=== PATIENT | male | born 1970 | race Caucasian/White ===

== ENCOUNTER 2016-11-09 01:22 | Emergency (ER) | payer SELFPAY ==
--- NOTE | ~2016-11-09 | ER ---
PATIENT'S NAME: LYNN CARNEY [facility] AGE: 45 Y [address] ROOM: [place] [address] LOCATION: [facility] ADMIT DATE: 11/09/2016 ER/Outpatient Report DISCHARGE DATE: 11/09/2016 FAMILY PHYSICIAN: PHYSICIAN, NO ATTENDING PHYSICIAN: Khushbu Rai Time of Arrival: 0122 hours. Time of Evaluation: 0216 hours. IDENTIFICATION: A 45-year-old male. CHIEF COMPLAINT: Abdominal pain. HISTORY OF PRESENT ILLNESS: The patient is a 45-year-old male with a history of Crohn disease, who presents with abdominal pain, nausea, and vomiting, started at 9:00 p.m. tonight. Diffuse abdominal pain. He has diarrhea, which he states is usual for him. No blood in his stools. No dark, tarry, or black stools. No change in his stools. No fever or chills. PAST MEDICAL HISTORY: ALLERGIES: NO KNOWN DRUG ALLERGIES. CURRENT MEDICATIONS: 1. Potassium. 2. Pentasa. MEDICAL PROBLEMS: Crohn disease; history of bowel obstruction, status post resection in 2008; and medical noncompliance. PRIOR SURGERIES: Colon resection and previous hernia repair. SOCIAL HISTORY: The patient is , lives here in [place]. He is disabled. Tobacco use 1 pack per day. Alcohol use, denies. Drug use, denies. FAMILY HISTORY: Father with NM and stroke. Mother with diabetes per old records. PATIENT'S NAME: LYNN CARNEY [facility] AGE: 45 Y [address] ROOM: [place] [address] LOCATION: [facility] ADMIT DATE: 11/09/2016 ER/Outpatient Report DISCHARGE DATE: 11/09/2016 FAMILY PHYSICIAN: PHYSICIAN, NO ATTENDING PHYSICIAN: Khushbu Rai REVIEW OF SYSTEMS: All systems reviewed and negative other than what is noted in the HPI. PHYSICAL EXAMINATION: VITAL SIGNS: Height 5 feet 8 inches, weight 55.9 kg. Blood pressure 113/70, pulse 100, respirations 16, temperature 97.9, and saturations 96% on room air. GENERAL: A 45-year-old male with 9/10 pain, in no acute distress. HEENT: Head: Normocephalic, atraumatic. Eyes: Pupils equal and reactive to light and accommodation. Extraocular movements intact. Nose: Mucosa pink. No lesions. Mouth: No lesions. Pharynx benign. NECK: Supple. No lymphadenopathy. No nuchal rigidity. LUNGS: Clear to auscultation. HEART: Regular rate and rhythm. No murmur, rub, or gallop. ABDOMEN: Hypoactive bowel sounds. Soft, nondistended. Diffusely tender to palpation. No rebound or guarding. SKIN: [place], warm, and dry. No lesions or rashes noted. NEURO: The patient is alert and oriented x4. Cranial nerves 2 through 12 grossly intact. Motor strength 5/5 throughout. Sensation is intact to light touch. EMERGENCY DEPARTMENT COURSE: An IV was initiated. Fentanyl and Zofran were ordered for pain and nausea, and lab work was obtained. Hemoglobin 15.8, hematocrit 45.7, platelets 372, white count 19.2 with 88% neutrophils. Sodium 140, potassium low at 2.6, chloride 112, CO2 of 19, BUN 13, creatinine 1.2, blood sugar 107. Liver enzymes normal. Amylase 134, lipase 275. CT with IV contrast was recommended. The patient refused CT scan. The patient refused any further workup and refused hospitalization. IMPRESSION AND PLAN: 1. Abdominal pain, history of Crohn's, and an elevated white count of 19,000. The patient refuses CT scan to rule out abscess. 2. Hypokalemia. Recommended for the patient to have potassium replacement. He agreed to oral potassium 40 mEq, but refused any further cares. He does understand the risks of cardiac arrhythmia, , infection, and abscess, and he signs out against medical advice. KHUSHBU RAI MD CAR/modl PATIENT'S NAME: LYNN CARNEY [facility] AGE: 45 Y [address] ROOM: [place], [place] [address] LOCATION: [facility] ADMIT DATE: 11/09/2016 ER/Outpatient Report DISCHARGE DATE: 11/09/2016 FAMILY PHYSICIAN: PHYSICIAN, NO ATTENDING PHYSICIAN: Khushbu Rai /[id number] d: 11/09/16 0503 t: 11/10/16 0142, OUTPATIENT REPORT
[~2016-11-09 01:22] MED LIST: B-12250 MCG PO; CALCIUM600 MG PO; DELTASONE10 MG PO; KLOR-CON M2020 MEQ PO; PENTASA500 MG PO; PREPARATION H O57 GM TOP; VITAMIN D400 UNIT PO
[2016-11-09 02:38] LABS: BASOPHIL # 0.1 K/uL (0.0-0.2); BASOPHIL % 0.3 %; EOSINOPHIL # 0.1 K/uL (0.0-0.5); EOSINOPHIL % 0.6 %; HEMATOCRIT 45.7 % (37.0-53.0); HEMOGLOBIN 15.8 g/dL (12.0-17.0); IMMATURE GRANULOCYTE # 0.1 K/uL (0.0-0.3); IMMATURE GRANULOCYTE % 0.4 %; LYMPHOCYTE # 1.3 K/uL (0.8-4.0); LYMPHOCYTE % 6.7 %; MCH 33.2 pg (27.0-34.0); MCHC 34.6 gm/dL (32.0-36.5); MONOCYTE # 0.7 K/uL (0.0-1.0); MONOCYTE % 3.6 %; MPV 8.6 fl (9.4-12.4); NEUTROPHIL # (ANC) 16.9 K/uL (1.4-9.0); NEUTROPHIL % 88.4 %; NRBC % 0 /100WBC (0-0.00); PLATELET COUNT 372 K/uL (150-450); RBC 4.76 M/uL (4.00-6.00); RDW-CV 13.3 % (11.9-14.6)
[2016-11-09 02:39] LABS: WBC 19.2 K/uL (4.0-11.0)
[2016-11-09 02:55] LABS: ALBUMIN 2.7 gm/dL (3.5-5.0); ALK PHOS 130 IU/L (33-138); ALT 15 IU/L (12-78); ANION GAP 11.6 (10.0-19.0); AST 23 IU/L (10-40); BLOOD UREA NITROGEN 13 mg/dL (6-24); CALCIUM 8.3 mg/dL (8.5-10.5); CHLORIDE 112 mMol/L (96-110); CO2 19 mMol/L (22-32); CREATININE 1.2 mg/dL (0.6-1.3); ESTIMATED GFR (MDRD EQUATION) > 60; SODIUM 140 mMol/L (135-145); TOTAL BILIRUBIN 0.7 mg/dL (0.0-1.5); TOTAL PROTEIN 6.5 g/dL (6.0-8.4)
[2016-11-09 02:56] LABS: POTASSIUM 2.6 mMol/L (3.7-5.1)
== END 2016-11-09 01:31 | disposition left against medical advice (07) ==
LOC: GMED 01:22
PROVIDERS: Family Medicine
DX: R10.9 Unspecified abdominal pain (principal); E87.6 Hypokalemia; F17.210 Nicotine dependence, cigarettes, uncomplicated; Z90.49 Acquired absence of other specified parts of digestive tract; Z87.19 Personal history of other diseases of the digestive system
CPT/HCPCS: J2405; J3010

== ENCOUNTER 2017-02-15 10:51 | Emergency (ER) | payer SELFPAY ==
--- NOTE | ~2017-02-15 | ER ---
PATIENT'S NAME: LYNN CARNEY [facility] AGE: 46 Y [address] ROOM: [place] [address] LOCATION: [facility] ADMIT DATE: 02/15/2017 ER/Outpatient Report DISCHARGE DATE: 02/15/2017 FAMILY PHYSICIAN: Physician, Unknown ATTENDING PHYSICIAN: Quinton Rader TIME OF PATIENT ARRIVAL: 1051 hours. TIME OF PATIENT EVALUATION: 1105 hours. CHIEF COMPLAINT: Hemorrhoids. HISTORY OF PRESENT ILLNESS: This is a 46-year-old male, who presents to the ER, who states he has been dealing with pain from his hemorrhoids for the last 3 days. The patient has a history of hemorrhoids, and they do have some cream for it, but it has not been helping him. He denies any fever or chills. He states that they do bleed after a bowel movement, but he has not had super-hard stools. He has no chest pain. No cough. No shortness of breath. No abdominal pain. He denies any other problems at this time. ALLERGIES: NO KNOWN ALLERGIES. MEDICATIONS: Please see medication list, nurse's notes. PAST MEDICAL HISTORY: 1. Crohn disease. 2. Hemorrhoids. 3. He has had his left lung collapse 2 years ago. PAST SURGICAL HISTORY: He has had bowel resection and a hernia repair. SOCIAL HISTORY: He smokes a pack of cigarettes a day for the last 30+ years. REVIEW OF SYSTEMS: All systems were reviewed and were negative with the exception of those discussed in the HPI. PATIENT'S NAME: LYNN CARNEY [facility] AGE: 46 Y [address] ROOM: [place] [address] LOCATION: [facility] ADMIT DATE: 02/15/2017 ER/Outpatient Report DISCHARGE DATE: 02/15/2017 FAMILY PHYSICIAN: Physician, Unknown ATTENDING PHYSICIAN: Quinton Rader PHYSICAL EXAMINATION: VITAL SIGNS: Weight 55 kg taken, blood pressure is 117/73, pulse 74, respirations 16, temperature 97.8 degrees tympanically, and saturation is 96% on room air. [place] Coma Score is 15. GENERAL: Alert, thin male in no acute distress. HEENT. Head: Normocephalic. Eyes: Pupils are equal and reactive to light. He does display moist mucous membranes. LUNGS: Clear to auscultation bilaterally. HEART: Regular rate and rhythm. ABDOMEN: Soft and nontender. He has good bowel sounds throughout. GENITOURINARY: He does have an external hemorrhoid noted. It does not appear to be thrombosed. NEUROLOGIC: Cranial nerves 2 through 12 grossly intact. Gait is steady without assistance. LABORATORY AND X-RAY DATA: None were done. IMPRESSION: External hemorrhoid. ASSESSMENT AND PLAN: We did give the patient 2 [place] here in the emergency room for his discomfort, and I will send him home with a prescription for Anusol suppositories to use as directed. He needs to do warm soaks in the tub. He may apply ice packs directly to the hemorrhoid to help with discomfort and may take Tylenol or ibuprofen at home for pain. He should follow up with his primary care physician if he is not improving. The patient understands and agrees with care. STEPHANIE MISTRY PA-C FOR MD LANETTE ARZATE/kyle /[id number] d: 02/15/171649 t: 03/03/17 0949, OUTPATIENT REPORT
== END 2017-02-15 11:26 | disposition disaster alternative care site (69) ==
LOC: GMED 10:51
DX: K64.4 Residual hemorrhoidal skin tags (principal); K50.90 Crohn's disease, unspecified, without complications; F17.210 Nicotine dependence, cigarettes, uncomplicated; Z90.49 Acquired absence of other specified parts of digestive tract; Z98.890 Other specified postprocedural states; Z79.899 Other long term (current) drug therapy

== ENCOUNTER 2017-03-11 09:13 | Emergency (ER) | payer OTHER ==
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
[2017-03-11 11:03] LABS: BASOPHIL # 0.1 K/uL (0.0-0.2); BASOPHIL % 0.4 %; EOSINOPHIL # 0.1 K/uL (0.0-0.5); EOSINOPHIL % 0.9 %; HEMATOCRIT 32.7 % (37.0-53.0); HEMOGLOBIN 11.3 g/dL (12.0-17.0); IMMATURE GRANULOCYTE # 0.1 K/uL (0.0-0.3); IMMATURE GRANULOCYTE % 0.7 %; LYMPHOCYTE # 1.3 K/uL (0.8-4.0); LYMPHOCYTE % 9.6 %; MCH 35.4 pg (27.0-34.0); MCHC 34.6 gm/dL (32.0-36.5); MCV 102.5 fl (83.0-98.0); MONOCYTE # 0.4 K/uL (0.0-1.0); MONOCYTE % 3.1 %; MPV 8.8 fl (9.4-12.4); NEUTROPHIL # (ANC) 11.9 K/uL (1.4-9.0); NEUTROPHIL % 85.3 %; NRBC % 0 /100WBC (0-0.00); PLATELET COUNT 342 K/uL (150-450); RDW-CV 14.5 % (11.9-14.6)
[2017-03-11 11:08] LABS: RBC 3.19 M/uL (4.00-6.00)
[2017-03-11 11:10] LABS: INR - (THERAPEUTIC) 0.99 (0.92-1.07); PROTIME 10.4 SECONDS (9.8-11.4); PTT 27 SECONDS (25-32)
[2017-03-11 11:20] LABS: ALBUMIN 2.1 gm/dL (3.5-5.0); ANION GAP 10.2 (10.0-19.0); CREATININE 1.1 mg/dL (0.6-1.3); PHOSPHORUS 2.4 mg/dL (2.5-4.9); POTASSIUM 3.2 mMol/L (3.7-5.1)
[2017-03-11 11:21] LABS: CALCIUM 7.4 mg/dL (8.5-10.5)
== END 2017-03-11 11:55 | disposition disaster alternative care site (69) ==
LOC: GACC 09:13
PROVIDERS: Emergency Medicine
DX: S20.212A Contusion of left front wall of thorax, initial encounter (principal); K50.90 Crohn's disease, unspecified, without complications; F17.210 Nicotine dependence, cigarettes, uncomplicated; Z79.899 Other long term (current) drug therapy; V49.9XXA Car occupant (driver) (passenger) injured in unspecified traffic accident, initial encounter